=== PATIENT | male | born 1985 | race Caucasian/White ===

== ENCOUNTER 2018-01-23 05:28 | Emergency (ER) | payer OTHER | END 2018-01-23 06:27 | disposition home or self-care (01) | LOC: M ED 05:28 | DX: S89.91XA Unspecified injury of right lower leg, initial encounter (principal); X50.9XXA Other and unspecified overexertion or strenuous movements or postures, initial encounter; Y92.830 Public park as the place of occurrence of the external cause; Y93.02 Activity, running; Z87.891 Personal history of nicotine dependence | CPT/HCPCS: 73564 ==